=== PATIENT | male | born 1985 | race Caucasian/White ===

== ENCOUNTER 2022-01-18 20:48 | Emergency (ER) | payer MEDICAID, OTHER ==
[~2022-01-18] VITALS: Ht 172.7 cm; Wt 70.5 kg
[2022-01-18 20:50] VITALS: BP 147/97
[2022-01-18] MEDS ORDERED: AMOX-117 PO (22:28)
[2022-01-18] MEDS ORDERED: amox tr/potassium clavulanate 875/125mg TAB PO ONE (22:30)
--- NOTE | 2022-01-18 22:32 | NUR ---
po med given
== END 2022-01-18 22:33 | disposition home or self-care (01) ==
LOC: ER 20:49
DX: K08.89 Other specified disorders of teeth and supporting structures (principal)
CPT/HCPCS: 99283

== ENCOUNTER 2022-03-11 03:10 | Emergency (ER) | payer MEDICAID ==
[~2022-03-11] VITALS: Ht 172.7 cm; Wt 75.0 kg
[2022-03-11 03:14] VITALS: BP 138/80
== END 2022-03-11 06:30 | disposition left against medical advice (07) ==
LOC: ER 03:11
DX: R21 Rash and other nonspecific skin eruption (principal); Z53.21 Procedure and treatment not carried out due to patient leaving prior to being seen by health care provider

== ENCOUNTER 2023-02-22 05:28 | Emergency (ER) | payer MEDICAID ==
[~2023-02-22] VITALS: Ht 172.7 cm; Wt 75.0 kg
[2023-02-22 05:48] VITALS: BP 144/93; PULSE 97; RESP 20; O2SAT 99
--- NOTE | 2023-02-22 07:53 | NUR ---
CALLED X3 NOT IN LOBBY
== END 2023-02-22 07:55 | disposition left against medical advice (07) ==
LOC: ER 05:28
DX: H57.89 Other specified disorders of eye and adnexa (principal); Z53.21 Procedure and treatment not carried out due to patient leaving prior to being seen by health care provider
CPT/HCPCS: 99281